=== PATIENT | male | born 1990 | race Caucasian/White ===

== ENCOUNTER 2021-11-10 18:21 | Emergency (ER) | payer OTHER ==
[~2021-11-10] VITALS: Ht 172.7 cm; Wt 70.3 kg
[2021-11-10 18:21] VITALS: BP 158/106
== END 2021-11-10 18:53 | disposition home or self-care (01) ==
LOC: ER 18:21
DX: R41.82 Altered mental status, unspecified (principal); F10.129 Alcohol abuse with intoxication, unspecified